=== PATIENT | male | born 1930 | race Caucasian/White ===

== ENCOUNTER 2016-08-24 13:38 | Observation (INO) | payer OTHER ==
[~2016-08-24] VITALS: Ht 179.1 cm; Wt 96.8 kg
[~2016-08-24 13:38] MED LIST: BETIMOL 0.100 DROP/5 BOTH EYES; CENTRUM SILVER1 EAC3 PO; ELIQUIS2.5 MG PO; FUROSEMIDE40 MG PO; GLYBURIDE5 MG PO; K-DUR10 MEQ PO; LANTUS 3 M100 UNITS1 SC; LASIX40 MG PO; LIPITOR10 MG PO; LISINOPRIL10 MG PO; LO-DOSE ASPIRIN81 M1 PO; LOPRESSOR50 MG PO; LUMIGAN 0.50 DROP/22 BOTH EYES; METOPROLOL TART25 MG PO; MULTIPLE VITAM1 EACH PO; NOVOLOG PE100 UNITS/ SC; ONE DAILY FOR1 EAC2 PO
[2016-08-24] MEDS ORDERED: TYLENOL REGULA325 MG PO (14:56)
[2016-08-24 15:00] LABS: EOSINOPHIL (%) 0.6 % (0-5); EOSINOPHIL COUNT 0.1 K/uL (0-0.3); HEMATOCRIT 34.8 % (38.0-50.0); IMMATURE GRANULOCYTE (%) 0.3 % (0.0-0.7); IMMATURE GRANULOCYTE COUNT 0.3 K/uL; LYMPHOCYTE COUNT 1.6 K/uL (1.0-2.8); MCH 31.2 PG (29.0-34.0); MCHC 34.2 G/DL (30.0-36.0); MCV 91.3 FL (86-99); MEAN PLAT.VOLUME 9.2 uM^3 (9.0-12.4); MONOCYTE (%) 3.7 % (3-12); MONOCYTE COUNT 0.4 K/uL (0-0.8); NEUTROPHIL (%) 81.6 % (45-76); NEUTROPHIL COUNT 9.4 K/uL (1.8-6.4); PLATELET COUNT 144 K/uL (156-360); RBC DIS.WIDTH-SD 45.1 % (39-53); RED BLOOD COUNT 3.81 M/uL (4.00-5.50); WHITE BLOOD COUNT 11.5 K/uL (4.1-10.2)
[2016-08-24 15:10] LABS: CHLORIDE 109 MEQ/L (99-109); SODIUM 138 MEQ/L (136-147)
[2016-08-24 15:12] LABS: GLUCOSE 286 mg/dL (70-99)
[2016-08-24 15:13] LABS: ANION GAP 6 MEQ/L (2-14)
[2016-08-24 15:14] LABS: TOTAL BILIRUBIN 0.5 MG/DL (0.0-1.0)
[2016-08-24 15:15] LABS: ALKALINE PHOSPHATASE 66 IU/L (3-129)
[2016-08-24 15:16] LABS: GFR ESTIMATE (CALCULATED) 30 mL/min/
[2016-08-24 15:17] LABS: UREA NITROGEN (BUN) 51 mg/dL (9-23)
[2016-08-24 15:22] LABS: TROP-I INTERPRETATION NEGATIVE; TROPONIN-I < 0.01 ng/mL (0.0-0.30)
[2016-08-24 15:29] LABS: POTASSIUM 6.9 mEq/L (3.7-5.4)
[2016-08-24 15:46] LABS: POINT-OF-CARE METER ID UU13113747
[2016-08-24] MEDS ORDERED: NOVOLOG PE100 UNITS/ SC (16:10)
[2016-08-24 17:40] LABS: POINT-OF-CARE METER ID UU13113747
[2016-08-24] MEDS ORDERED: TIMOPTIC-0100 DROP/1 BOTH EYES (18:07)
[2016-08-24 18:24] VITALS: BP 123/87
[2016-08-24 21:15] LABS: ADD MIUA? NO; BILIRUBIN NEGATIVE; BLOOD NEGATIVE; COLOR YELLOW ((YELLOW)); GLUCOSE (STRIP) 250; KETONES NEGATIVE; LEUKOCYTES NEGATIVE; NITRITE NEGATIVE; PH, URINE 6.5 (5-8); PROTEIN (STRIP) NEGATIVE; SPECIFIC GRAVITY 1.012 (1.000-1.030); UROBILINOGEN 0.2 MG/DL (0.2-1.0)
[2016-08-24 21:19] LABS: UCUL ADDED? NO
[2016-08-24 21:39] LABS: POINT-OF-CARE METER ID UU13113700
[2016-08-24 21:43] LABS: ANION GAP 7 MEQ/L (2-14); CHLORIDE 107 MEQ/L (99-109); SAMPLE HEMOLYSIS CHECK 0; SAMPLE ICTERIC CHECK 0; SAMPLE LIPEMIA CHECK 0; SODIUM 140 MEQ/L (136-147)
[2016-08-24 21:49] LABS: GFR ESTIMATE (CALCULATED) 36 mL/min/; GLUCOSE 203 mg/dL (70-99); UREA NITROGEN (BUN) 51 mg/dL (9-23)
[2016-08-24 21:59] LABS: POTASSIUM 4.9 MEQ/L (3.7-5.4)
[2016-08-25] VITALS (7 sets, daily range): BP systolic 132–143; BP diastolic 64–68
[2016-08-25 06:06] LABS: HEMATOCRIT 30.3 % (38.0-50.0); MCHC 33.7 G/DL (30.0-36.0); MCV 92.1 FL (86-99); MEAN PLAT.VOLUME 9.8 uM^3 (9.0-12.4); PLATELET COUNT 117 K/uL (156-360); RBC DIS.WIDTH-CV 14.1 % (11.8-14.6); RBC DIS.WIDTH-SD 46.5 % (39-53); RED BLOOD COUNT 3.29 M/uL (4.00-5.50); WHITE BLOOD COUNT 8.1 K/uL (4.1-10.2)
[2016-08-25 06:28] LABS: ANION GAP 6 MEQ/L (2-14); CHLORIDE 110 MEQ/L (99-109); GFR ESTIMATE (CALCULATED) 38 mL/min/; POTASSIUM 4.2 MEQ/L (3.7-5.4); SAMPLE HEMOLYSIS CHECK 0; SAMPLE ICTERIC CHECK 0; SAMPLE LIPEMIA CHECK 0; SODIUM 142 MEQ/L (136-147); UREA NITROGEN (BUN) 49 mg/dL (9-23)
[2016-08-25 06:29] LABS: GLUCOSE 98 mg/dL (70-99)
[2016-08-25 12:38] LABS: POINT-OF-CARE METER ID UU14162513
== END 2016-08-25 15:08 | disposition home or self-care (01) ==
LOC: EME 13:38 → EDOF 16:21 → 5WEST 16:21 → EDOF 16:21 → 5WEST 18:09
PROVIDERS: Emergency Medicine; Hospitalist; Internal Medicine
DX: R55 Syncope and collapse (principal); M25.561 Pain in right knee; I12.9 Hypertensive chronic kidney disease with stage 1 through stage 4 chronic kidney disease, or unspecified chronic kidney disease; E11.22 Type 2 diabetes mellitus with diabetic chronic kidney disease; N18.3 Chronic kidney disease, stage 3 (moderate); E87.6 Hypokalemia; F17.290 Nicotine dependence, other tobacco product, uncomplicated; Z80.49 Family history of malignant neoplasm of other genital organs; Z88.7 Allergy status to serum and vaccine; Z88.5 Allergy status to narcotic agent
CPT/HCPCS: 71010; 73564; 80048; 80048 91; 80053; 81003; 82948; 84484; 85025; 85027; 93005; 99281; 99285; G0378; G8978 GP CI; G8980 GP CH; J1815; J7040

== ENCOUNTER 2017-01-03 13:51 | Emergency (ER) | payer OTHER ==
[~2017-01-03] VITALS: Ht 180.3 cm; Wt 88.7 kg
[~2017-01-03 13:51] MED LIST changes: +TIMOPTIC-0100 DROP/1 BOTH EYES; +TYLENOL REGULA325 MG PO
[2017-01-03 14:34] LABS: HEMATOCRIT 36.4 % (38.0-50.0); MCH 30.9 PG (29.0-34.0); MCHC 33.2 G/DL (30.0-36.0); MEAN PLAT.VOLUME 9.4 uM^3 (9.0-12.4); PLATELET COUNT 146 K/uL (156-360); RBC DIS.WIDTH-CV 13.7 % (11.8-14.6); RBC DIS.WIDTH-SD 46.2 % (39-53); RED BLOOD COUNT 3.92 M/uL (4.00-5.50)
[2017-01-03 14:35] LABS: MCV 92.9 FL (86-99); WHITE BLOOD COUNT 11.5 K/uL (4.1-10.2)
[2017-01-03 14:42] LABS: CHLORIDE 110 mEq/L (99-109); POTASSIUM 5.4 mEq/L (3.7-5.4); SODIUM 141 mEq/L (136-147)
[2017-01-03 14:44] LABS: GLUCOSE 266 mg/dL (70-99); INTER. NORMALIZED RATIO 1.1; PROTHROMBIN TIME 11.6 (9.2-11.2); PTT 26.6 (25-32)
[2017-01-03 14:46] LABS: ANION GAP 5 MEQ/L (2-14); TOTAL BILIRUBIN 0.5 mg/dL (0.0-1.0)
[2017-01-03 14:48] LABS: ALKALINE PHOSPHATASE 65 IU/L (3-129); GFR ESTIMATE (CALCULATED) 30 mL/min/
[2017-01-03 14:49] LABS: UREA NITROGEN (BUN) 45 mg/dL (9-23)
[2017-01-03] MEDS ORDERED: PERCOCET 5/31 TABLET PO (17:11)
[2017-01-03 19:20] VITALS: BP 170/94
== END 2017-01-03 19:30 | disposition home or self-care (01) ==
LOC: EME 13:51
PROVIDERS: Emergency Medicine
DX: S22.42XA Multiple fractures of ribs, left side, initial encounter for closed fracture (principal); W01.190A Fall on same level from slipping, tripping and stumbling with subsequent striking against furniture, initial encounter; N18.9 Chronic kidney disease, unspecified; I12.9 Hypertensive chronic kidney disease with stage 1 through stage 4 chronic kidney disease, or unspecified chronic kidney disease; F17.200 Nicotine dependence, unspecified, uncomplicated; Z87.442 Personal history of urinary calculi; E11.9 Type 2 diabetes mellitus without complications; E78.5 Hyperlipidemia, unspecified
CPT/HCPCS: 70450; 71250; 74176; 80053; 85027; 85610; 85730; 93005; 94010; 99281; 99285; J7030

== ENCOUNTER 2018-01-12 13:08 | Observation (INO) | payer OTHER ==
[~2018-01-12] VITALS: Ht 182.9 cm; Wt 91.8 kg
[~2018-01-12 13:08] MED LIST changes: +PERCOCET 5/31 TABLET PO
[2018-01-12 14:26] LABS: HEMATOCRIT 33.3 % (38.0-50.0); HEMOGLOBIN 11.5 G/DL (12.5-16.6); MCH 31.9 PG (29.0-34.0); MCHC 34.5 G/DL (30.0-36.0); PLATELET COUNT 148 K/uL (156-360); RBC DIS.WIDTH-CV 13.5 % (11.8-14.6); RBC DIS.WIDTH-SD 45.5 % (39-53); RED BLOOD COUNT 3.61 M/uL (4.00-5.50); WHITE BLOOD COUNT 9.6 K/uL (4.1-10.2)
[2018-01-12 14:27] LABS: MCV 92.2 FL (86-99)
[2018-01-12 14:38] LABS: CHLORIDE 108 mEq/L (99-109); POTASSIUM 5.6 mEq/L (3.7-5.4); SODIUM 140 mEq/L (136-147)
[2018-01-12 14:40] LABS: GLUCOSE 199 mg/dL (70-99)
[2018-01-12 14:43] LABS: CREATININE 2.1 mg/dL (0.6-1.3); GFR ESTIMATE (CALCULATED) 32 mL/min/ (58.99-99999)
[2018-01-12 14:44] LABS: UREA NITROGEN (BUN) 34 mg/dL (9-23)
[2018-01-12 15:07] LABS: TROP-I INTERPRETATION NEGATIVE; TROPONIN-I 0.01 ng/mL (0.0-0.30)
[2018-01-12] MEDS ORDERED: TRAMADOL HCL50 MG PO (17:36)
[2018-01-12 18:23] VITALS: BP 201/91
[2018-01-12 19:13] VITALS: BP 156/71
[2018-01-13 00:23] VITALS: BP 17/82; BP 177/82
[2018-01-13 01:20] LABS: TROP-I INTERPRETATION NEGATIVE; TROPONIN-I 0.03 ng/mL (0.0-0.30)
[2018-01-13 04:14] VITALS: BP 183/94
[2018-01-13 05:08] LABS: BASOPHIL (%) 0.4 % (0-1); EOSINOPHIL (%) 1.9 % (0-5); EOSINOPHIL COUNT 0.2 K/uL (0-0.3); HEMATOCRIT 34.2 % (38.0-50.0); HEMOGLOBIN 11.6 G/DL (12.5-16.6); IMMATURE GRANULOCYTE (%) 0.4 % (0.0-0.7); LYMPHOCYTE (%) 23.8 % (15-42); MCH 31.2 PG (29.0-34.0); MCHC 33.9 G/DL (30.0-36.0); MCV 91.9 FL (86-99); MONOCYTE (%) 6.7 % (3-12); MONOCYTE COUNT 0.6 K/uL (0-0.8); NEUTROPHIL (%) 66.8 % (45-76); NEUTROPHIL COUNT 5.7 K/uL (1.8-6.4); PLATELET COUNT 170 K/uL (156-360); RBC DIS.WIDTH-CV 13.3 % (11.8-14.6); RED BLOOD COUNT 3.72 M/uL (4.00-5.50); WHITE BLOOD COUNT 8.5 K/uL (4.1-10.2)
[2018-01-13 05:28] LABS: TROP-I INTERPRETATION NEGATIVE; TROPONIN-I 0.02 ng/mL (0.0-0.30)
[2018-01-13 05:35] LABS: ALBUMIN 3.3 G/DL (3.2-4.8); ALKALINE PHOSPHATASE 71 IU/L (3-129); ALT (GPT) 8 IU/L (3-49); AST (GOT) 13 IU/L (2-34); CHLORIDE 108 MEQ/L (99-109); CREATININE 1.8 MG/DL (0.6-1.3); DIRECT BILIRUBIN 0.2 mg/dL (0.0-0.3); GFR ESTIMATE (CALCULATED) 38 mL/min/ (58.99-99999); GLUCOSE 130 mg/dL (70-99); SODIUM 141 MEQ/L (136-147); TOTAL BILIRUBIN 0.6 MG/DL (0.0-1.0); TOTAL PROTEIN 5.8 G/DL (6.4-8.3); UREA NITROGEN (BUN) 31 mg/dL (9-23)
[2018-01-13 05:40] LABS: POTASSIUM 3.8 MEQ/L (3.7-5.4)
[2018-01-13 07:28] VITALS: BP 139/62
[2018-01-13 11:46] VITALS: BP 124/60
[2018-01-13] MEDS ORDERED: CEPHALEXIN500 MG PO (13:27)
== END 2018-01-13 14:20 | disposition home or self-care (01) ==
LOC: EME 13:08 → EDOF 16:43 → 4SOUTH 16:43 → EDOF 16:43 → ENRESERV 16:51 → 4SOUTH 17:57 → ENPENDDIS 01-13 13:41 → 4SOUTH 01-13 14:20
PROVIDERS: Emergency Medicine; Internal Medicine
DX: R55 Syncope and collapse (principal); E87.5 Hyperkalemia; R00.1 Bradycardia, unspecified; I44.0 Atrioventricular block, first degree; E11.22 Type 2 diabetes mellitus with diabetic chronic kidney disease; I12.9 Hypertensive chronic kidney disease with stage 1 through stage 4 chronic kidney disease, or unspecified chronic kidney disease; N18.3 Chronic kidney disease, stage 3 (moderate); M19.90 Unspecified osteoarthritis, unspecified site; L03.116 Cellulitis of left lower limb; Z79.01 Long term (current) use of anticoagulants; Z79.4 Long term (current) use of insulin; Z80.49 Family history of malignant neoplasm of other genital organs; F17.210 Nicotine dependence, cigarettes, uncomplicated
CPT/HCPCS: 70450; 71046; 73630; 80048; 80076; 82948; 84484; 85025; 85027; 93005; 99281; 99284; G0378; G8978 GP CJ; G8979 GP CI; G8980 CJ; G8987 GO CJ; G8988 CI; G8989 CJ; J1815; J7030